=== PATIENT | female | born 1975 | race Two or more races ===

== ENCOUNTER 2025-06-12 00:20 | Emergency (ER) | payer MEDICAID, SELFPAY ==
[2025-06-12 00:21] VITALS: BMI 31.2
[2025-06-12 01:06] VITALS: BP 154/87; PULSE 87; RESP 16; TEMP 36.9; O2SAT 98
[2025-06-12] MEDS: MethylPREDNISolone SOD SUCC 62.5 MG/ML 2ML VIAL 125 MG IM (01:22)
[2025-06-12] MEDS: FAMOTIDINE 20 MG TABLET 40 MG PO (01:23)
--- NOTE | 2025-06-12 01:28 | PD.EDSKIN ---
ED Skin Abcess FB-RME/HPI General Chief complaint: Skin/Abscess/Foreign Body Stated complaint: RASH Time Seen by Provider: 06/12/25 00:26 Source: patient Arrival date/time: 06/12/25 00:20 This is a case of 49-year-old female with no medical history came in in the emergency room due to maculopapular urticarial reddish rash on the face neck's chest abdomen back both lower extremities for 2 days worsening of the symptoms this patient decided to start consulted in the emergency room patient can speak full sentences no drooling of the saliva no facial or throat swelling no shortness of breath Limitations: no limitations Related Data Previous Rx's ?Medication ?Instructions ?Recorded docusate sodium 100 mg capsule 100 mg PO QDAY 30 days #30 caps 09/09/20 (Stool Softener) ferrous sulfate 325 mg (65 mg 325 mg PO BID 30 days #60 tabs 09/09/20 iron) tablet diphenhydramine HCl 25 mg capsule 25 mg PO TID PRN allergic reaction 06/12/25 #20 caps famotidine 20 mg tablet (Pepcid) 20 mg PO BID #10 tabs 06/12/25 prednisone 20 mg tablet 20 mg PO QDAY 5 days #5 tabs 06/12/25 Allergies Allergy/AdvReac Type Severity Reaction Status Date / Time No Known Allergies Allergy Verified 06/12/25 00:21 Review of Systems Review of Systems Systems Reviewed: All systems reviewed, normal except as documented Constitutional Constitutional: Reports system reviewed and no additional complaints, except as documented and Reports as per HPI ENT Ears, Nose, Mouth, and Throat: Reports system reviewed and no additional complaints, except as documented and Reports as per HPI Cardiovascular Cardiovascular: Reports system reviewed and no additional complaints, except as documented and Reports as per HPI Respiratory Respiratory: Reports system reviewed and no additional complaints, except as documented and Reports as per HPI Gastrointestinal Gastrointestinal: Reports system reviewed and no additional complaints, except as documented and Reports as per HPI Musculoskeletal Musculoskeletal: Reports system reviewed and no additional complaints, except as documented and Reports as per HPI Neurologic Neurologic: Reports system reviewed and no additional complaints, except as documented and Reports as per HPI Past Medical History Past Medical History NEUROLOGIC: Negative Seizures CARDIAC: Negative Congestive Heart Failure RESPIRATORY: Negative Chronic Obstructive Pulmonary Disease (COPD) GENITOURINARY: Negative Renal Disease ENDOCRINE: Negative Diabetes Mellitus Type 1 or Diabetes Mellitus Type 2 OTHER HISTORY: Positive Blood Transfusions; Negative Blood Transfusion Reaction or Anesthesia Reactions Surgical History SURGICAL: Positive Section (X1) Social History SMOKING STATUS: Never smoker ED Exam General Limitations: Present no limitations General appearance: Present alert, in no apparent distress and other (Patient is awake alert oriented not in distress nontoxic looking well-hydrated well-nourished) Head Head exam: Present atraumatic, normocephalic and normal inspection Eye Eye exam: Present normal appearance, PERRL and EOMI ENT ENT exam: Present normal exam, normal oropharynx, mucous membranes moist and other (ENT exam is normal no drooling of saliva patient can speak full sentences no facial or throat swelling) Neck Neck exam: Present normal inspection, full ROM and trachea midline; Absent tenderness, meningismus, lymphadenopathy or thyromegaly Chest Chest inspection: Present normal inspection and symmetric chest wall rise; Absent tenderness Respiratory Respiratory exam: Present normal lung sounds bilaterally; Absent respiratory distress, wheezes, stridor, accessory muscle use or prolonged expiratory phase Cardiovascular Cardiovascular exam: Present regular rate, normal rhythm and normal heart sounds; Absent bradycardia, tachycardia, irregular rhythm, systolic murmur or diastolic murmur Abdominal Exam Abdominal exam: Present soft and normal bowel sounds Extremities Exam Extremities exam: Present normal inspection and full ROM Back Exam Back exam: Present normal inspection and full ROM Neurological Exam Neurological exam: Present alert, oriented X3, CN II-XII intact, normal gait and reflexes normal; Absent motor sensory deficit Psychiatric Psychiatric exam: Present normal affect and normal mood Skin Skin exam: Present warm, dry, intact, normal color and other (Noted maculopapular urticarial rashes on the face neck chest abdomen back both upper and both lower extremities suggestive of allergic urticaria no abscess no cellulitis nonblanching) Course Quality Measures none Orders Category Date Time Status DiphenhydrAMINE INJ [Benadryl Inj] Med 06/12/25 01:12 Discontinued 50 mg IM X1 ONE Famotidine [Pepcid] Med 06/12/25 01:12 Discontinued 40 mg PO X1 ONE MethylPREDNISolone.* [SoluMEDROL Inj] Med 06/12/25 01:12 Discontinued 125 mg IM X1 ONE Vital Signs Vital signs: Vital Signs Temperature 98.5 F 06/12/25 01:06 Pulse Rate 87 06/12/25 01:06 Respiratory Rate 16 06/12/25 01:06 Blood Pressure 154/87 H 06/12/25 01:06 Pulse Oximetry (%) 98 06/12/25 01:06 Oxygen Delivery Method Room Air 06/12/25 01:06 Oxygen saturation is 98% in room air normal Skin / Abscess / Foreign Body MDM Narrative MDM Narrative:: This is a case of 49-year-old female with no medical history came in in the emergency room due to maculopapular urticarial reddish rash on the face neck's chest abdomen back both lower extremities for 2 days worsening of the symptoms this patient decided to start consulted in the emergency room patient can speak full sentences no drooling of the saliva no facial or throat swelling no shortness of breath physical examination patient is awake alert oriented not in distress nontoxic looking well-hydrated well-nourished HEENT exam is normal no facial swelling no throat swelling no drooling of saliva patient is able to swallow with no difficulty vital signs stable BP stable nontachycardic nontachypneic afebrile and nonhypoxic lung sound is clear no crackles no rales no retraction no stridor skin noted maculopapular urticarial rashes on the face neck chest abdomen back both upper and both lower extremities suggestive of allergic urticaria no signs and symptoms of hypoxia angioedema or anaphylaxis patient was given a dose of Benadryl IM Solu-Medrol IM and Pepcid patient condition markedly improved and resolved rash is subsided no shortness of breath no facial or throat swelling patient will follow-up with PCP in 2 days for reevaluation and to be referred to verification specialist for allergy testing recurrence persistent worsening symptoms return to the emergency room immediately or call 911 Patient was discharged with comfortable condition walking with stable gait. Patient verbalized no further complains explained diagnosis and answered patient question. Patient is comfortable with the proposed management plan including the need to follow up with his/her primary care physician and any specialist if applicable Discussed patient for any urgent condition or worsening sx, He/She needed to go to emergency room immediately or call 911. Patient acknowledge the responsibility to follow up as instructed and to monitor her/his symptoms. For any persistence of the symptoms for more than 3-5 days return precaution advised. Discussed the result of the test and was given printed discharge instruction Patient data External records reviewed:: [facility] previous records Clinical information provided by:: patient Social determinants that could affect healthcare access:: none Patient has the following chronic illnesses:: None How is presenting disease/condition affected by chronic disease/condition?: no chronic disease Evaluation data The following diagnostics were reviewed and interpreted by me:: other (specify) (None) Lab and/or radiology exams considered but not ordered:: None Interpretation Summary: None Medications / Prescriptions Medications or Prescriptions considered but not ordered:: Given Medication administrations:: Medication Administration History Discontinued Medications Diphenhydramine HCl (Diphenhydramine Inj 50 Mg/Ml Vial) 50 mg IM X1 ONE Stop: 06/12/25 01:13 Last Admin: 06/12/25 01:25 Dose: 50 mg Documented By: OA Famotidine (Famotidine 20 Mg Tablet) 40 mg PO X1 ONE Stop: 06/12/25 01:13 Last Admin: 06/12/25 01:23 Dose: 40 mg Documented By: OA Methylprednisolone Sodium Succinate (Methylprednisolone Sod Succ 62.5 Mg/Ml 2ml Vial) 125 mg IM X1 ONE Stop: 06/12/25 01:13 Last Admin: 06/12/25 01:22 Dose: 125 mg Documented By: OA Given Consultations Consultation(s) initiated? (list below): No Diagnosis Skin/Abscess Differential Diagnosis: abscess of skin or subcutaneous tissue, urticaria, allergic reaction to drug, cellulitis and contact dermatitis Most likely diagnosis given after review of the tests above:: Allergic urticaria Admission Indicated Admission indicated?: not indicated Explain why admission is indicated or not indicated:: Not indicated Admission Request Was there a request for admission?: No Admission Attestation Admission request attestation: Not indicated Disposition Plan Disposition Plan: Discharge Discharge Attestation Discharge Attestation: The patient and all family members were given an opportunity to ask questions and understood the discharge instructions. Discharge instructions specifically effects, indications for sooner follow up or return to the emergency department, and the expected course of current diagnosis. Patient condition: Stable Discharge Plan Plan Patient Disposition: HOME (Self Care) Patient condition on transfer: Stable Prescriptions/Referrals Prescriptions/Med Rec: New prednisone 20 mg tablet 20 mg PO QDAY 5 Days Qty: 5 0RF famotidine [Pepcid] 20 mg tablet 20 mg PO BID Qty: 10 0RF diphenhydramine HCl 25 mg capsule 25 mg PO TID PRN (Reason: allergic reaction) Qty: 20 0RF No Action ferrous sulfate 325 mg (65 mg iron) tablet 325 mg PO BID 30 Days Qty: 60 2RF docusate sodium [Stool Softener] 100 mg capsule 100 mg PO QDAY 30 Days Qty: 30 1RF Referrals: No Primary/Family,Physician [Primary Care Provider] - In 1 week Problem List Clinical Impression: Allergic urticaria Patient/Caregiver Discharge Instructions Education Materials: ED Hives (Adult) Additional Instructions: Follow-up with your primary care physician in 2 days for reevaluation and to be referred to verification specialist for allergy testing and health assessment and treatment teacher if the symptoms persist or recur recurrence persistent worsening symptoms or any emergent concern call 911 or go to the nearest emergency room take your medication as directed use of hypoallergenic soap and hypoallergenic laundry soap is advised Print Language: Faroese Stand Alone Forms: [employer]i Award Info., Patient Portal Info Letter PA/[employer] Supervising Physician PA/[employer] Supervising Physician: Dr. Alcantar
== END 2025-06-12 01:29 | disposition home or self-care (01) ==
PROVIDERS: Emergency Provider Family Medicine
DX: L50.0 Allergic urticaria (principal)
CPT/HCPCS: 96372; 99283; J1200; J2919; A9270

== ENCOUNTER 2025-07-29 10:13 | Emergency (ER) | payer MEDICAID, SELFPAY ==
[2025-07-29 11:22] VITALS: BP 151/79; PULSE 71; RESP 16; TEMP 36.6; O2SAT 97; BMI 27.1
--- NOTE | 2025-07-29 11:23 | XR_ITS ---
Examination: Duplex scan of the lower extremity, unilateral right Date and time of exam: 07/29/2025, 12:05 p.m. Indication right leg pain and swelling x3 days Technique: Duplex scan of the extremity veins using B-mode/grayscale imaging and Doppler spectral analysis and color flow Attention is directed to internal echogenicity, compression and augmentation involving these veins, color flow assessment, spectral analysis Findings: Major deep venous structures in the extremity demonstrate normal course and caliber. There is no evidence of deep vein thrombosis. Normal color flow and spectral analysis Impression: Negative for DVT..
--- NOTE | 2025-07-29 11:23 | XR_ITS ---
EXAM 3 views of the right femur DATE: 07/29/2025, 11:24 a.m. COMPARISON: None FINDINGS: No evidence of fracture or dislocation. No significant degenerative changes or soft tissue abnormality. IMPRESSION: Negative exam
--- NOTE | 2025-07-29 11:24 | EDNOTE_ITS ---
ED Extremity Problem RME/HPI General Chief complaint: Extremity Problem,Nontraumatic Stated complaint: Right leg pain X 2 days Time Seen by Provider: 07/29/25 11:13 Arrival date/time: 07/29/25 10:13 50-year-old female patient with no past medical history, came in for evaluation regarding sudden onset of right-sided pain. Onset of symptoms for the last 2 days's patient woke up with pain to the right thigh, described as dull ache, severity moderate. Patient denies any redness denies any weakness denies any swelling. Patient denies any trauma or fall. Denies any back pain. No medication was taken prior to ER visit. Related Data Previous Rx's ?Medication ?Instructions ?Recorded docusate sodium 100 mg capsule 100 mg PO QDAY 30 days #30 caps 09/09/20 (Stool Softener) ferrous sulfate 325 mg (65 mg 325 mg PO BID 30 days #6 0 tabs 09/09/20 iron) tablet diphenhydramine HCl 25 mg capsule 25 mg PO TID PRN all ergic reaction 06/12/25 #20 caps famotidine 20 mg tablet (Pepcid) 20 mg PO BID #10 tabs 06/12/25 cyclobenzaprine 10 mg tablet 10 mg PO TID PRN muscle s pasm #30 07/29/25 tabs ibuprofen 800 mg tablet 800 mg PO Q8H PRN pain #30 t abs 07/29/25 Allergies Allergy/AdvReac Type Severity Reaction Status Date / Time No Known Allergies Allergy Verified 07/29/25 10:18 Review of Systems Review of Systems Narrative Review of Systems: Review of system reviewed and within normal limits except mentioned in HPI ED Exam Narrative Physical exam: VITAL SIGNS: Reviewed. GENERAL APPEARANCE: Alert and interactive, follows commands, no acute distress, HEAD AND FACE: Non-traumatic. ENT: PERRL, pink conjunctivitis, eyelid no trauma, Mucous membrane moist. NECK: Supple, nontender, no nuchal rigidity. CHEST: No tenderness, no crepitus, no paradoxical movement, no retractions. LUNGS: Clear, well ventilated, symmetric, no rales, no wheezing, no ronchi, no stridor, good breath sounds bilaterally. HEART: Regular rate, regular rhythm, no murmur, no gallops. ABDOMEN: Soft, positive bowel sounds, nondistended, no guarding, nontender, no rebound, no masses, RECTAL: Deferred. GENITAL: Deferred. NEUROLOGICAL: Gross motor function intact sensory function intact, Appropriate for age. MUSCULOSKELETAL: low back nontender, full range of motion. EXTREMITIES: Right thigh tenderness more to the medial aspect on palpation no swelling,, full range of motion. Distal neurovascular status intact SKIN: Color pink, dry, no rash, no lacerations, no abrasions, no contusions. LYMPHATICS: Deferred. Course Quality Measures none Orders Category Date Time Status US venous doppler LE RT Stat Exams 07/29/25 11:23 Completed XR femur RT 2V Stat Exams 07/29/25 11:23 Completed CYCLObenzaPRINE [Flexeril] Med 07/29/25 11:23 Discontinued 10 mg PO X1 ONE Ketorolac Inj [Toradol Inj] Med 07/29/25 11:23 Discontinued 30 mg IM X1 ONE Vital Signs Vital signs: Vital Signs Temperature 97.9 F 07/29/25 11:22 Pulse Rate 71 07/29/25 11:22 Respiratory Rate 16 07/29/25 11:22 Blood Pressure 151/79 H 07/29/25 11:22 Pulse Oximetry (%) 97 07/29/25 11:22 Oxygen Delivery Method Room Air 07/29/25 11:22 Extremity Problem MDM Narrative MDM Narrative:: 50-year-old female patient with no past medical history, came in for evaluation regarding sudden onset of right-sided pain. Onset of symptoms for the last 2 days's patient woke up with pain to the right thigh, described as dull ache, severity moderate. Patient denies any redness denies any weakness denies any swelling. Patient denies any trauma or fall. Denies any back pain. No medication was taken prior to ER visit. Ultrasound of the lower extremities negative for DVT x-ray of the femur is negative for any acute pathology. Patient was given Toradol and Flexeril with significant improvement of symptoms patient was advised to follow-up mostly with PCP and for referral to spine surgeon if no improvement in 1 week. Currently patient is ambulatory, order imaging is noted at this time patient is not showing any cauda equina syndrome. Patient data External records reviewed:: None Clinical information provided by:: patient Social determinants that could affect healthcare access:: none Patient has the following chronic illnesses:: None How is presenting disease/condition affected by chronic disease/condition?: no chronic disease Evaluation data The following diagnostics were reviewed and interpreted by me:: radiology exam(s) Lab and/or radiology exams considered but not ordered:: None Interpretation Summary: See MDM Medications / Prescriptions Medications or Prescriptions considered but not ordered:: None Medication administrations:: Medication Administration History Discontinued Medications Cyclobenzaprine HCl (Cyclobenzaprine 5 Mg Tablet) 10 mg PO X1 ONE Stop: 07/29/25 11:24 Last Admin: 07/29/25 11:39 Dose: 10 mg Documented By: ED Ketorolac Tromethamine (Ketorolac Inj 30 Mg/Ml Vial) 30 mg IM X1 ONE Stop: 07/29/25 11:24 Last Admin: 07/29/25 11:39 Dose: 30 mg Documented By: ED Toradol and Flexeril Consultations Consultation(s) initiated? (list below): No Diagnosis Extremity Problem Differential Diagnosis: deep venous thrombosis of upper extremity and deep vein thrombosis of lower extremity Most likely diagnosis given after review of the tests above:: Sciatica Admission Indicated Admission indicated?: not indicated Admission Request Was there a request for admission?: No Disposition Plan Disposition Plan: Discharge Discharge Attestation Discharge Attestation: The patient and all family members were given an opportunity to ask questions and understood the discharge instructions. Discharge instructions specifically effects, indications for sooner follow up or return to the emergency department, and the expected course of current diagnosis. Patient condition: Stable Discharge Plan Plan Patient Disposition: HOME (Self Care) Discharge Disposition comment: Stable Prescriptions/Referrals Prescriptions/Med Rec: New ibuprofen 800 mg tablet 800 mg PO Q8H PRN (Reason: pain) Qty: 30 0RF cyclobenzaprine 10 mg tablet 10 mg PO TID PRN (Reason: muscle spasm) Qty: 30 0RF No Action ferrous sulfate 325 mg (65 mg iron) tablet 325 mg PO BID 30 Days Qty: 60 2RF docusate sodium [Stool Softener] 100 mg capsule 100 mg PO QDAY 30 Days Qty: 30 1RF famotidine [Pepcid] 20 mg tablet 20 mg PO BID Qty: 10 0RF diphenhydramine HCl 25 mg capsule 25 mg PO TID PRN (Reason: allergic reaction) Qty: 20 0RF Referrals: No Primary/Family,Physician [Primary Care Provider] - In 1 week Problem List Clinical Impression: Sciatica Patient/Caregiver Discharge Instructions Discharge Activity: activity as tolerated Education Materials: ED Sciatica Additional Instructions: Thank you for the opportunity for serving you today. You are stable for discharged . You are advised to: Follow-up with your PCP in 1 to 2 days Return to ED for worsening of symptoms Increase oral fluids Take medication as prescribed Ask your PCP to refer you to a software implementation specialist if no improvement of your pain in 1 week Print Language: Pashto Stand Alone Forms: Abi Award Info., Patient Portal Info Letter PA/JACQUELINE Supervising Physician PA/JACQUELINE Supervising Physician: MD Katharine
[2025-07-29] MEDS: KETOROLAC INJ 30 MG/ML VIAL IM (11:39)
== END 2025-07-29 14:09 | disposition home or self-care (01) ==
PROVIDERS: Emergency Provider Emergency Medicine
DX: M54.30 Sciatica, unspecified side (principal)
CPT/HCPCS: 73552; 93971; 96372; 99283; J1885; A9270